=== PATIENT | male | born 1950 | race Caucasian/White ===

== ENCOUNTER 2019-12-21 16:20 | Emergency (ER) | payer MEDICARE, BC, SELFPAY ==
[2019-12-21] VITALS (8 sets, daily range): BP systolic 148–168; BP diastolic 91–111; PULSE 74–87; RESP 14–18; TEMP 36.6–36.7; O2SAT 96–100; BMI 37.6
--- NOTE | 2019-12-21 16:33 | XR_ITS ---
PROCEDURE: XR SHOULDER LT MIN 2V CLINICAL INDICATION: FALL COMPARISON: No exams were available for comparison FINDINGS: The humeral head projects over the inferior lip of the glenoid consistent with anterior shoulder dislocation. There is a small bone fragment adjacent to the greater tuberosity probably representing an avulsion chip fracture. Clavicle is intact. There is a slightly lateral downsloping acromion process of the scapula. The soft tissues are normal. IMPRESSION: Anterior shoulder dislocation with possible small avulsion chip fracture involving the greater tuberosity. Dictated by: Dr. Karel Greer MD 12/22/2019 10:54 Dr. aKrel Greer MD in [facility] 12/22/2019 10:54
--- NOTE | 2019-12-21 16:34 | XR_ITS ---
PROCEDURE: XR ELBOW LT MIN 3V CLINICAL INDICATION: FALL COMPARISON: No exams were available for comparison FINDINGS: No fracture or dislocation. No lytic or blastic change. There is normal mineralization. The joint spaces are well-preserved. No significant degenerative/arthritic changes. No erosive changes evident. Other findings:None. IMPRESSION: No acute findings. Dictated by: Dr. Karel Greer MD 12/22/2019 10:56 Dr. Karel Greer MD in [facility] 12/22/2019 10:56
--- NOTE | 2019-12-21 16:34 | XR_ITS ---
PROCEDURE: XR HUMERUS LT CLINICAL INDICATION: FALL COMPARISON: No exams were available for comparison FINDINGS: The humeral head and humeral shaft and supracondylar humerus appear grossly intact other than possible small avulsion chip fracture of the greater tuberosity. The humeral head remains dislocated projecting over the inferior lip of the glenoid. IMPRESSION: Anterior dislocation left shoulder with probable chip fracture greater tuberosity otherwise humeral shaft intact Dictated by: Dr. Karel Greer MD 12/22/2019 10:55 Dr. Karel Greer MD in [facility] 12/22/2019 10:55
--- NOTE | 2019-12-21 16:35 | CT_ITS ---
PROCEDURE: CT HEAD/BRAIN WO CON Referring Doctor: Omar Cardoza Patient Age:68Y CLINICAL INDICATION: FALL head and neck pain. Head injury. Neck injury COMPARISON: CT CT CERVICAL SPINE WO CON from 12/21/2019 TECHNIQUE: No IV contrast utilized standard axial images were obtained. All CT scans at the facility use one or more dose reduction, viz: automated exposure control, ma/kV adjustment per patient size (including targeted exams where dose is matched to indication, i.e. head), or iterative reconstruction technique. FINDINGS: No acute intracranial findings. No intracranial hemorrhage. No hydrocephalus.The ventricles and basal cisterns appear clear and satisfactory. Minimal diffuse cerebral atrophy age-appropriate no mass or midline shift nor mass effect. No subdural or extra-axial fluid collection is evident. Benign calcifications the falx. Tortuous upper normal caliber basilar artery. Posterior fossa unremarkable. Skull intact- calvarium unremarkable appearance. Nomastoid effusions. Mastoid air cells are well developed and clear. Middle ear clear. IAC's symmetric. Nosinus air-fluid level. Visualized portions of the paranasal sinuses unremarkable. Deviation nasal septum septal minimal spur to the left noted IMPRESSION: No acute intracranial findings Dictated by: Abner Grande MD 12/21/2019 17:41 Abner Grande MD in [facility] 12/21/2019 17:41
--- NOTE | 2019-12-21 16:36 | CT_ITS ---
PROCEDURE: CT CERVICAL SPINE WO CON CLINICAL INDICATION: FALL COMPARISON: No exams were available for comparison TECHNIQUE: Axial images obtained with sagittal and coronal reformats. All CT scans at the facility use one or more dose reduction, viz: automated exposure control, ma/kV adjustment per patient size (including targeted exams where dose is matched to indication, i.e. head), or iterative reconstruction technique. Axial spiral CT scanning performed of the cervical spine beginning at the base of the skull and continuing to the upper T-spine. 3-D multiplanar reconstruction with 3-D manipulation of volumetric data set in image rendering was completed by the radiologist and/or technologist with the supervision of the radiologist on independent workstation. FINDINGS: There is normal curvature and alignment. There is mild generalized osteopenia. C1 through C7 appear intact. There is mild anterior osteophytic spurring at the C3-4, C4-5 and C5-6 levels. There is moderate posterior osteophytic spurring at the C5-6 and C6-7 levels. These findings in addition to spurring of the uncinate joints results and moderate neural foraminal narrowing bilaterally at both of these levels. The prevertebral soft tissues are normal. There is mild arthritic change of the atlantoaxial joint. IMPRESSION: Multilevel degenerate changes as noted, no acute osseous pathology identified Dictated by: Dr. Karel Greer MD 12/22/2019 11:12 Dr. Karel Greer MD in [facility] 12/22/2019 11:12
--- NOTE | 2019-12-21 16:37 | CT_ITS ---
PROCEDURE: CT ANGIO CHEST CLINCIAL INDICATION: FALL COMPARISON: No exams were available for comparison TECHNIQUE: IV Contrast: 70ML OPTIRAY 350 Axial images obtained with sagittal and coronal reformats. All CT scans at the facility use one or more dose reduction, viz: automated exposure control, ma/kV adjustment per patient size (including targeted exams where dose is matched to indication, i.e. head), or iterative reconstruction technique. FINDINGS: HEART AND MEDIASTINAL STRUCTURES: There is borderline generalized cardiomegaly, there is no pericardial effusion. There is excellent vascular contrast. The pulmonary vascularity appears normal. LUNGS AND PLEURAL SPACES: The lung mcginnis are well-expanded. There is no pneumothorax and there is no pulmonary contusion. There is minimal atelectasis at both lung bases. There is an azygos lobe seen a normal variation. BONY STRUCTURES: There is prominent multilevel degenerate changes of the thoracic spine with prominent bridging osteophytes at multiple levels. There is no definite acute compression fracture seen. There is an anterior dislocation left humeral head. UPPER ABDOMEN: There are multiple surgical clips along the greater curvature of the upper stomach and there is a small to moderate-sized hiatal hernia. The visualized portions of the liver and spleen appear grossly normal. ADDITIONAL FINDINGS: There is a partially calcified thyroid nodule left lobe.. IMPRESSION: Anterior dislocation left shoulder not completely visualized on these images. Otherwise no acute chest pathology identified Dictated by: Dr. Karel Greer MD 12/22/2019 15:28 Dr. Karel Greer MD in [facility] 12/22/2019 15:28
--- NOTE | 2019-12-21 16:38 | CT_ITS ---
PROCEDURE: CT ABDOMEN PELVIS W CON CLINICAL INDICATION: FALL COMPARISON: No exams were available for comparison TECHNIQUE: IV Contrast: 75ML OPTIRAY 350 Oral Contrast none given Axial images obtained with sagittal and coronal reformats. All CT scans at the facility use one or more dose reduction, viz: automated exposure control, ma/kV adjustment per patient size (including targeted exams where dose is matched to indication, i.e. head), or iterative reconstruction technique. FINDINGS: Lower thorax: The lower lung mcginnis are clear and there is no pleural fluid. ABDOMEN: Liver: No masses or biliary dilatation. Gallbladder: Post cholecystectomy Pancreas: Mild diffuse fatty infiltration noted Spleen: unremarkable Adrenals: There is a nodular slightly hypodense lesion involving the right adrenal gland likely an adenoma in view of the CT number. The left adrenal is normal. Kidneys/ureters: The kidneys are normal in size and show symmetrical function. There are small benign-appearing cortical cysts in each kidney. ABDOMEN & PELVIS: Stomach bowel: There is a small to moderate size sliding hiatal hernia. The stomach appears grossly normal though there are multiple surgical clips along the upper greater curvature. The small bowel appears normal. There is moderate scattered stool and gas seen throughout the colon. There are mild diverticular changes of the sigmoid colon. There is a slightly enhancing small moderate-sized diverticulum of the upper sigmoid colon, doubt acute diverticulitis. Peritoneum: There is a small umbilical hernia containing fat only. There is a well-defined hypodense lesion within the muscular and fascial planes of the right upper lateral abdomen measuring 3.5 cm in length and likely a small lipoma. Lymph nodes: No enlarged lymph nodes apparent. Vasculature: No evidence of abdominal aortic aneurysm. No retroperitoneal hemorrhage evident. Bones: There prominent multilevel degenerate changes of the lower thoracic and lumbar spine with mild levo scoliotic curvature of the lower thoracic and lumbar spine. There prominent hypertrophic facet changes at levels L4-5 and L5-S1. PELVIS: Reproductive: unremarkable Bladder: The urinary bladder is moderately distended with urine and appears normal. The prostate is slightly enlarged. There is minimal calcification of the seminal vesicles. Appendix: The appendix is not definitely visualized but there are no findings to suggest acute appendicitis. IMPRESSION: No acute abdominal or pelvic pathology identified, mild diverticulosis sigmoid colon without definite diverticulitis, somewhat prominent solitary diverticulum of the upper sigmoid colon as noted Dictated by: Dr. Karel Greer MD 12/22/2019 17:19 Dr. Karel Greer MD in [facility] 12/22/2019 17:19
--- NOTE | 2019-12-21 16:39 | XR_ITS ---
PROCEDURE: XR HIP RT 2-3V W/PELVIS CLINICAL INDICATION: FALL COMPARISON: No exams were available for comparison FINDINGS: No fracture or dislocation is evident. Overall bony detail somewhat degraded due to the portable technique and the patient's obesity. There minor degenerate changes of both hips and there is minor sclerosis of both SI joints. There are surgical clips mid lower pelvis probably due to previous ventral hernia or possibly inguinal hernia repairs. The iliac bones and pubic bones appear intact.. IMPRESSION: No acute findings. Dictated by: Dr. Karel Greer MD 12/22/2019 11:01 Dr. Karel Greer MD in [facility] 12/22/2019 11:01
--- NOTE | 2019-12-21 16:40 | [facility].EDFALL ---
ED Disposition Clinical Impression: Dislocation of shoulder region, Fall, Right hip pain Disposition: Home, Self-Care Condition on Discharge: Fair Instructions: DI for Moderate Sedation Additional Instructions: Return with any new or worsening symptoms. Follow-up with an orthopedist and your primary care physician regarding CT scan findings. Referrals: PCP,No [Primary Care Provider] - - Critical Care Critical Care Time: Yes Attestation: On , the high probability of a clinically significant, sudden or life threatening deterioration of the following system(s) required my full and direct attention, intervention and personal management. The time I documented below is in addition to time spent performing reported procedures but includes the following listed in this critical care notation. Total Critical Care Time: 30 Vital system(s) involved:: Circulatory Failure, Respiratory Failure, Shock (Hemorrhage) My critical care processes included: Assessment & monitoring of V/S, Initial and Re-exams, Data Review/Interpretation, Coordinating Care, Medication Orders and management, Documentation Medical Decision Making - Howie Inquiry Pt receiving controlled substance: No Vital Signs: 12/21/19 16:27 12/21/19 17:54 12/21/19 17:58 Temperature 98.1 F Temperature Source Oral Pulse Rate [Radial] 77 81 79 Respiratory Rate 18 18 14 Blood Pressure [Right Arm] 155/111 H 165/106 H 168/104 H Blood Pressure Mean [Right Arm] 125 125 125 Blood Pressure Position [Right Arm] Sitting Sitting Sitting 02 Sat by Pulse Oximetry 98 96 100 Oxygen Delivery Method Room Air Nasal Cannula Nasal Cannula Oxygen Flow Rate (LPM) 3 3 12/21/19 18:05 12/21/19 18:08 12/21/19 18:13 Temperature Temperature Source Pulse Rate [Radial] 82 87 77 Respiratory Rate 14 14 16 Blood Pressure [Right Arm] 165/91 H 148/94 H 155/93 H Blood Pressure Mean [Right Arm] 115 112 113 Blood Pressure Position [Right Arm] Sitting Sitting 02 Sat by Pulse Oximetry 97 97 98 Oxygen Delivery Method Nasal Cannula Nasal Cannula Oxygen Flow Rate (LPM) 3 3 12/21/19 18:30 Temperature Temperature Source Pulse Rate [Radial] 82 Respiratory Rate 16 Blood Pressure [Right Arm] 161/99 H Blood Pressure Mean [Right Arm] 119 Blood Pressure Position [Right Arm] Sitting 02 Sat by Pulse Oximetry 96 Oxygen Delivery Method Nasal Cannula Oxygen Flow Rate (LPM) 3 - Lab Data Lab Results 12/21/19 16:40: WBC 6.9, RBC 4.43 L, Hgb 15.1, Hct 42.0, MCV 94.8 H, MCH 34.0 H, MCHC 35.9 H, RDW 13.2, Plt Count 213, MPV 8.8, Neut % (Auto) 72.4, Lymph % (Auto) 18.9, Callaway % (Auto) 4.3, Eos % (Auto) 3.7, Baso % (Auto) 0.7, Neut # (Auto) 5.0, Lymph # (Auto) 1.3, Call[place] # (Auto) 0.3, Eos # (Auto) 0.3, Baso # (Auto) 0.1 12/21/19 16:40: Sodium 140, Potassium 3.3 L, Chloride 105, Carbon Dioxide 27, Anion Gap 11.3, BUN 17, Creatinine 0.70, Estimated Creat Clear 122, Estimated GFR 112, Est GFR ( Amer) 136, Glucose 119 H, Calcium 8.9, Total Bilirubin 0.7, AST 36, ALT 17, Alkaline Phosphatase 56, Total Protein 6.8, Albumin 4.1, Globulin 2.7, Albumin/Globulin Ratio 1.5 Result diagrams: 12/21/19 16:40 12/21/19 16:40 Orders (Tests/Meds): ED MEDICATIONS Discontinued Medications Generic Name Dose Route Start Last Admin Trade Name Freq PRN Reason Stop Dose Admin Ioversol 100 ml 12/21/19 17:40 12/21/19 17:40 Ioversol-350 (74%) 100ml Vial IV 12/21/19 17:41 100 ml ONCE ONE Administration Protocol Morphine Sulfate 4 mg 12/21/19 16:40 12/21/19 16:41 Morphine 4mg/Ml Syringe IV 12/21/19 16:41 4 mg ONCE ONE Administration Morphine Sulfate 4 mg 12/21/19 16:54 12/21/19 16:54 Morphine 4mg/Ml Syringe IV 12/21/19 16:55 4 mg ONCE ONE Administration Ondansetron HCl 4 mg 12/21/19 16:40 12/21/19 16:41 Ondansetron 4mg/2ml Vial IV 12/21/19 16:41 4 mg ONCE ONE Administration Propofol 40 mg 12/21/19 17:56 12/21/19 17:56 Propofol 10mg/Ml 20ml Vial
[2019-12-21 16:49] LABS: Basophils # 0.1 K/mm3 (0-0.2); Basophils % 0.7 % (0.1-2.0); Eosinophils # 0.3 K/mm3 (0.0-0.4); Eosinophils % 3.7 % (0.1-12.0); Hemoglobin 15.1 g/dL (14.1-18.0); Lymphocytes # 1.3 K/mm3 (0.7-4.5); Lymphocytes % 18.9 % (10-50); Mean Corpuscular HGB Conc 35.9 g/dL (31.8-35.4); Mean Corpuscular Volume 94.8 fl (80-94); Mean Platelet Volume 8.8 fl (7.4-10.4); Monocytes # 0.3 K/mm3 (0.1-1.0); Monocytes % 4.3 % (1.7-9.3); Neutrophils % 72.4 % (37.0-80.0); Platelet Count 213 K/mm3 (142-424); Red Blood Count 4.43 M/mm3 (4.60-6.20); Red Cell Distribution Width 13.2 % (11.5-17.5); White Blood Count 6.9 K/mm3 (4.8-10.8)
--- NOTE | 2019-12-21 16:59 | PC.NURSE ---
Radiology at bedside
[2019-12-21 17:04] LABS: Chloride 105 mmol/L (98-107)
[2019-12-21 17:05] LABS: Potassium 3.3 mmoL/L (3.5-5.1); Sodium 140 mmol/L (136-145)
[2019-12-21 17:07] LABS: Alanine Aminotransferase 17 U/L (12-78); Aspartate Amino Transferase 36 U/L (17-59); Blood Urea Nitrogen 17 mg/dl (9-20); Creatinine Clearance Estimated 122 mL/min (50-200); Estimated Glomerular Filt Rate 112 ml/min (>60); GFR (African American) 136 ML/MIN (>60)
[2019-12-21 17:08] LABS: Albumin Level 4.1 g/dl (3.5-5.0); Albumin/Globulin Ratio 1.5 (1.1-1.8); Alkaline Phosphatase 56 U/L (38-126); Anion Gap 11.3 mEq/L (5-15); Bilirubin,Total 0.7 mg/dl (0.2-1.3); Calcium 8.9 mg/dl (8.4-10.2); Carbon Dioxide 27 mmol/L (22.0-30.0); Globulin 2.7 g/dL (1.3-3.2); Glucose 119 mg/dl (74-100); Total Protein,Serum 6.8 g/dl (6.3-8.2)
--- NOTE | 2019-12-21 17:23 | PC.NURSE ---
Pt is with Rad in CT. v/s delayed.
--- NOTE | 2019-12-21 18:06 | XR_ITS ---
PROCEDURE: XR SHOULDER LT 1V CLINICAL INDICATION: Post reduction COMPARISON: CR XR HUMERUS LT from 12/21/2019 FINDINGS: The anterior shoulder dislocation has been reduced. The humeral head and proximal humeral shaft appear intact. The clavicle is intact, there is minor degenerate change of the AC joint. There is a lateral downsloping acromion process which could predispose to some degree of impingement syndrome. IMPRESSION: Satisfactory reduction anterior shoulder dislocation Dictated by: Dr. Karel Greer MD 12/22/2019 10:52 Dr. Karel Greer MD in [facility] 12/22/2019 10:52
--- NOTE | 2019-12-21 18:20 | PC.NURSE ---
pt awake alert oriented x 4 taking sips of sprite
--- NOTE | 2019-12-21 18:59 | PC.NURSE ---
pt up ambulatory to bathroom with assist of one. pt jaylin well
== END 2019-12-21 20:06 | disposition home or self-care (01) ==
PROVIDERS: Emergency Provider Emergency Medicine
DX: S42.255A Nondisplaced fracture of greater tuberosity of left humerus, initial encounter for closed fracture (principal); S43.002A Unspecified subluxation of left shoulder joint, initial encounter; W11.XXXA Fall on and from ladder, initial encounter; Y92.019 Unspecified place in single-family (private) house as the place of occurrence of the external cause
CPT/HCPCS: 23665; 70450; 71275; 72125; 73020; 73030; 73060; 73080; 73502; 74177; 80053; 85025; 96365; 96374; 96375; 96376; 99285; J2405; Q9967

== ENCOUNTER 2024-12-19 18:59 | Emergency (ER) | payer MEDICARE, BC, SELFPAY ==
--- OUTSIDE RECORDS SUMMARY | 2022-07-21 10:44 | XMS_ITS | Encounter Summary ---
[facility] [address] [place] [address] Care Team Providers Care Swimming Pool Installer And Servicer Name Role Phone Nick Siddiqui MD Primary Care Provider [phone] Reason for Referral * Cardiac (Routine) - Closed Specialty Diagnoses / Procedures Referred By Stefan t Referred To Contact Cardiology Diagnoses Persistent atrial fibrillation Procedures Holter Monitor - 24 [place] [address] [place] [address] Phone: tel: fax: [facility] [address] [place] [phone] Phone: tel: fax: Referral ID Status Reason Start Date Expiration Date Visits Re quested Visits Authorized [id number] Closed 07/03/2022 07/03/2023 1 1 Reason for Visit * Cardiac (Routine) - Closed Specialty Diagnoses / Procedures Referred By Contnatalee t Referred To Contact Cardiology Diagnoses Persistent atrial fibrillation Procedures Holter Monitor - 24 Hour Neeraj Alvarenga III, MD [address] [place] [address] Phone: tel: fax: [facility] [address] [place] [phone] Phone: tel: fax: Referral ID Status Reason Start Date Expiration Date Visits Re quested Visits Authorized [id number] Closed 07/03/2022 07/03/2023 1 1 Encounter Details Date Type Department Care Team (Latest Contact Info) Description 07/21/2022 10:44 AM EDT Hospital Encounter [facility] [address] [place] [address] Persistent atrial fibrillation Social History Tobacco Use Types Packs/Day Years Used Date Smoking Tobacco: Never Passive Smoke Exposure: Never Smokeless Tobacco: Never Alcohol Use Standard Drinks/Week Comments Yes 5 (1 standard drink = 0.6 oz pur e alcohol) [facility] Utilities Answer Date Recorded In the past 12 months has th e electric, gas, oil, or water company threatened to shut off services in your home? No 01/12/2023 Social Connection and Isolat ion Panel [NHANES] Answer Date Recorded In a typical week, how many times do you talk on the phone with family, friends, or neighbors? More than three times a week 01/12/2023 How often do you get togethe r with friends or relatives? Once a week 01/12/2023 How often do you attend chur ch or jain services? Never 01/12/2023 Do you belong to any clubs o r organizations such as quaker groups, unions, fraternal or athletic groups, or school groups? No 01/12/2023 How often do you attend meet ings of the clubs or organizations you belong to? Never 01/12/2023 Are you , , di vorced, , never , or living with a partner? 01/12/2023 Overall Financial Resource Strain (CARDIA) Answe r Date Recorded How hard is it for you to pa y for the very basics like food, housing, medical care, and heating? Somewhat hard 01/12/2023 PHQ-2 Answer Date Recorded Retired PHQ-9: Brief Depression Severity Measure Score 0 07/30/2022 [facility] Occup[facility] - Occupational Stress Questionnaire Answer Date Recorded Do you feel stress - tense, restless, nervous, or anxious, or unable to sleep at night because your mind is troubled all the time - these days? Not at all 01/12/2023 Exercise Vital Sign Answer Date Recorde d On average, how many days pe r week do you engage in moderate to strenuous exercise (like a brisk walk)? 0 days 01/12/2023 On average, how many minutes do you engage in exercise at this level? 0 min 01/12/2023 Hunger Vital Sign Answer Date Recorded Within the past 12 months, y ou worried that your food would run out before you got the money to buy more. Never true 01/13/20 23 Within the past 12 months, t he food you bought just didn't last and you didn't have money to get more. Never true 01/12/2023 PRAPARE - Transportation Answer Date Re corded In the past 12 months, has l ack of transportation kept you from medical appointments or from getting medications? No 12/21 In the past 12 months, has l ack of transportation kept you from meetings, work, or from getting things needed for daily living? No 01/12/2023 Housing Stability Vital Sign Answer Dylon e Recorded In the last 12 months, was t here a time when you were not able to pay the mortgage or rent on time? No 01/12/2023 In the last 12 months, how many places have you lived? 2 01/12/2023 In the last 12 months, was t here a time when you did not have a steady place to sleep or slept in a senior care (including now)? No 01/12/2023 Abuse Screen Answer Date Recorded Feels Unsafe at Home or Work/School no 07/01/2022 Feels Threatened by Someone no 06/20 Does Anyone Try to Keep You From Having Contact with Others or Doing Things Outside Your Home? no 07/01/2022 Physical Signs of Abuse Present no 07/01/2022 PHQ-2 Answer Date Recorded Patient Health Questionnaire-2 Score 0 09/13/2024 Comments Unknown Sex and Gender Information Value Date Recorded Sex Assigned at Not recorded on cert ificate 09/11/2024 11:33 AM EDT Legal Sex Male 3:14 PM EDT Gender Identity Male 06/28/2022 3:05 PM EDT Sexual Orientation Straight 06/28/2022 3: 05 PM EDT documented as of this encounter Functional Status documented as of this encounter Progress Notes * Kendra Moncada APRN - 07/21/2022 11:[address] Alvarenga is out of the office today. Holter monitor shows atrial fibrillation, average heart rate of 82 which is good. He has premature ventricular contractions 1.8% of the time. I would recommend continuing with apixaban and metoprolol. Please call patient and let him know. documented in this encounter Plan of Treatment Upcoming Encounters Date Type Department Care Team (Late st Contact Info) Description 04/04/2025 1:00 PM EST Office Visit [facility] [address] [facility] [address] [place] [address] [place] [address] [facility] [address] [place] [address] 05/11/2025 10:30 AM EST Office Visit [facility] [address] [facility] [address] [place] [address] Neeraj Alvarenga III, MD [address] [facility] [address] [place], [place] [id number] documented as of this encounter Goals Goal Patient Goal Type Associated Problems Recent Progress Patient-Stated? Author Track and Manage Heart Rate and Rhythm Patient Goals On track( 024 2:30 PM EST) No Rachel Rapp, RN Note: - check pulse (heart) rate before taking medicine - check pulse (heart) rate once a day - take medicine as prescribed Why is this important? Atrial fibrillation may have no symptoms. Sometimes the symptoms get worse or happen more often. It is important to keep track of what your symptoms are and when they happen. A change in symptoms is important to discuss with your doctor or nurse. Being active and healthy eating will also help you manage your heart condition. Notes: Develop a Weight Loss Readiness Plan Patient Goals On track( 024 2:30 PM EST) Rachel Miller RN Note: - not discussed during this outreach Why is this important? Losing weight requires time to prepare your mind and your home. Identify your eating habits and the emotions attached to eating. Think about ways to be successful. When you are not ready, you could lose motivation and give up on your plan. Notes: Manage Pain Patient Goals On track( 024 2:30 PM EST) Rachel Miller, RN Note: - not discussed during this outreach Why is this important? Day-to-day life can be hard when you have joint pain. Pain medicine is just one piece of the treatment puzzle. There are many things you can do to manage pain and stay strong. Lifestyle changes like stopping smoking and eating foods with Vitamin D and calcium keeps your bones and muscles healthy. Your joints are better when supported by strong muscles. You can try these action steps to help you manage your pain. Notes: documented as of this encounter Procedures Procedure Name Priority Date/Time Associated Diagnosis Comments HOLTER MONITOR - CONNECT/RECORD/DIS CONNECT WITH INTERP Routine 07/21/2022 11:30 AM EDT Persistent atrial fibrillation documented in this encounter Results * HOLTER MONITOR - CONNECT/RECORD/DISCONNECT WITH INTERP (07/21/2022 11:30 AM EDT) Target HR (85%) 127 bpm Max. Pred. HR (100%) 149 bpm Anatomical Region Laterality Modality Other Narrative 07/27/2022 9:19 AM EDT An abnormal monitor study. The predominant rhythm noted during the testing period was atrial fibrillation. Average HR: 82. Min HR: 53. Max HR: 153. 1.8% of all beats are PVCs. There were no significant pauses. Study Description Monitor placed on patient by TF on 07/21/2022 at 10:36 EDT. Instructions were provided to patient on use of holter monitor and duration of monitoring. The patient was monitored for 1 days. Indications for this exam include Other Persistent Atrial Fibrillation. Average HR: 82. Min HR: 53. Max HR: 153. Study Findings Patient diary submitted. No symptoms reported during the monitoring period. The predominant rhythm noted during the testing period was atrial fibrillation. Premature ventricular contractions occured occasionally. 1.8% of all beats are PVCs. There were no significant pauses. Study Impressions An abnormal monitor study. us Neeraj Alvarenga III, MD [facility] Final Result documented in this encounter Visit Diagnoses Diagnosis Persistent atrial fibrillation Atrial fibrillation documented in this encounter Care Teams Swimming Pool Installer And Servicer Relationship Specialty [place] [id number] [address] PCP - General Family Medicine 12/20/18 documented as of this encounter
--- OUTSIDE RECORDS SUMMARY | 2024-11-22 13:30 | XMS_ITS | Encounter Summary ---
[facility] Address [address] [place] [address] Care Team Providers Care Sales Data Analyst Name Role Phone Nick Siddiqui MD Primary Care Provider Reason for Visit * Reason Comments Hypertension C/o high readings Encounter Details Date Type Department Care Team (Late st Contact Info) Description 11/22/2024 1:30 PM EDT Office Visit [facility] [address] [facility] [address] [place] [address] [place] [id number] [facility] [address] [place] [address] Primary hypertension (Primary Dx); Impaired fasting glucose Social History Tobacco Use Types Packs/Day Years Used Date Smoking Tobacco: Never Passive Smoke Exposure: Never Smokeless Tobacco: Never Alcohol Use Standard Drinks/Week Comments Yes 5 (1 standard drink = 0.6 oz pur e alcohol) OCCASIONAL C Utilities Answer Date Recorded In the past 12 months has [employer] electric, gas, oil, or water company threatened [...] week 01/12/2023 How often do you attend [facility] or confucianist services? Never 01/12/2023 Do you belong to any clubs o r organizations such as worship groups, unions, fraternal or athletic groups, or [...] Brief Depression Severity Measure Score 0 07/30/2022 [facility] - Occupational Stress [...] place to sleep or slept in a residential (including now)? No 01/12/2023 Abuse Screen Answer [...] PM EDT documented as of this encounter Last Filed Vital Signs Vital Sign Reading Time Taken Comments Blood Pressure 152/90 11/22/2024 1:17 PM EDT Pulse 60 11/22/2024 1:17 PM EDT Temperature 36.7 C (98 F) 11/22/2024 1:17 PM EDT Respiratory Rate - - Oxygen Saturation 98% 11/22/2024 1:17 PM EDT Inhaled Oxygen Concentration - - Weight 144 kg (317 lb 12.8 oz) 11/22/2024 1:17 P M EDT Height 177.8 cm (5' 10 ) 11/22/2024 1:17 PM EDT Body Mass Index 45.6 11/22/2024 1:17 PM EDT documented in this encounter Progress Notes * Nick Siddiqui MD - 11/22/2024 1:30 PM EDT Chief Complaint Patient presents with Hypertension C/o high readings Subjective Chet Smith is a 73 y.o. adult. Hypertension Associated symptoms: no blurred vision, no chest pain, no palpitations and no shortness of breath F/U HTN. BP running 150/90-100. Not on amlodipine 5 mg a day. On other meds. The following portions of the patient's history were reviewed and updated as appropriate: allergies, current medications, past family history, past medical history, past social history, past surgicalhistory and problem list. Review of Systems Constitutional: Negative for appetite change and fatigue. HENT: Negative for nosebleeds and sore throat. Eyes: Negative for blurred vision and visual disturbance. Respiratory: Negative for shortness of breath and wheezing. Cardiovascular: Negative for chest pain, palpitations and leg swelling. Gastrointestinal: Negative for abdominal distention and abdominal pain. Endocrine: Negative for cold intolerance and polyuria. Genitourinary: Negative for dysuria and hematuria. Musculoskeletal: Negative for arthralgias and myalgias. Skin: Negative for color change and rash. Neurological: Negative for weakness and confusion. Psychiatric/Behavioral: Negative for agitation and depressed mood. Patient Active Problem List Diagnosis CHARITO (obstructive sleep apnea) Medicare annual wellness visit, subsequent Malabsorption Impaired fasting glucose Hypertension GERD without esophagitis Depression Benign paroxysmal positional vertigo Allergic rhinitis Benign enlargement of prostate Arthritis of both knees H/O bariatric surgery Morbid obesity Nephrolithiasis Cough Anterior dislocation of left shoulder Chronic left shoulder pain Paronychia of left thumb Bilateral carpal tunnel syndrome Encounter for hepatitis C screening test for low risk patient Immunization deficiency Permanent atrial fibrillation PVCs (premature ventricular contractions) Ascending aorta dilation Aortic root dilation Nonrheumatic mitral valve regurgitation Left ventricular dysfunction Arthritis of left knee No Known Allergies Current Outpatient Medications: acetaminophen (Tylenol) 325 MG tablet, Take 500 mg by mouth Daily., Disp: , Rfl: amLODIPine (NORVASC) 5 MG tablet, Take 1 tablet by mouth Daily., Disp: 90 tablet, Rfl: 3 apixaban (Eliquis) 5 MG tablet tablet, Take 1 tablet by mouth Every 12 (Twelve) Hours., Disp: 28 tablet, Rfl: 0 Ascorbic Acid (VITAMIN C PO), Take 1 tablet by mouth Daily., Disp: , Rfl: Calcium Carbonate-Vit D-Min (CALTRATE 600+D PLUS MINERALS) 600-800 MG-UNIT chewable tablet, 1 bid (Patient taking differently: Chew 2 tablets. 1 bid), Disp: 60 tablet, Rfl: cetirizine (zyrTEC) 10 MG tablet, Take 1 tablet by mouth Daily., Disp: , Rfl: cyanocobalamin ([employer] Vitamin B-12) 1000 MCG tablet, Take 1 tablet by mouth Daily., Disp: , Rfl: diphenhydrAMINE (BENADRYL) 25 mg capsule, Take 2 capsules by mouth 2 (two) times a day., Disp: , Rfl: docusate sodium 100 MG capsule, Take 1 capsule by mouth 2 (Two) Times a Day., Disp: 60 capsule, Rfl: 1 hydroCHLOROthiazide 25 MG tablet, Take 1 tablet by mouth Daily., Disp: 90 tablet, Rfl: 3 metoprolol succinate XL (TOPROL-XL) 50 MG 24 hr tablet, Take 4 tablets by mouth Daily. Per Dr. Parnell 10/02/2022, Disp: 360 tablet, Rfl: 3 Multiple Vitamin (MULTI-VITAMIN PO), Take 1 tablet by mouth Daily. HELD FOR OR, Disp: , Rfl: Multiple Vitamins-Minerals (PRESERVISION AREDS 2 PO), Take by mouth. HOLD PRIOOR TO OR, Disp: , Rfl: oxybutynin (DITROPAN) 5 MG tablet, Take 1 tablet by mouth 2 (Two) Times a Day., Disp: , Rfl: potassium citrate (UROCIT-K) 10 MEQ (1080 MG) CR tablet, Take 1 tablet by mouth 2 (Two) Times a Day., Disp: 180 tablet, Rfl: 3 valsartan (Diovan) 160 MG tablet, Take 1 tablet by mouth Daily., Disp: 90 tablet, Rfl: 3 Past Medical History: Diagnosis Date Allergic rhinitis Arthritis Atrial fibrillation 2021 Benign enlargement of prostate Benign paroxysmal positional vertigo Cholelithiasis Closed fracture of greater tuberosity of left humerus 12/27/2019 Eczema Fracture, finger 6 mouths History of 2019 novel coronavirus disease (COVID-19) 07/2019 FEVER AND COUGH History of cellulitis History of shingles 2019 Hypertension Impaired fasting glucose Kidney stone Knee swelling Year a go Low back strain Nephrolithiasis Obesity CHARITO (obstructive sleep apnea) WEARS CPAP Psoriasis PVCs (premature ventricular contractions) 04/29/2023 1.8% PVC burden on Holter 2022 Rotator cuff tear, left Past Surgical History: Procedure Laterality Date BACK SURGERY About 25 year BARIATRIC SURGERY CATARACT EXTRACTION, BILATERAL 02/2020 CHOLECYSTECTOMY COLONOSCOPY 2010 DIVERTICULOSIS COLONOSCOPY N/A 10/09/2020 Procedure: COLONOSCOPY INTO CECUM/ TERMINAL ILEUM; Surgeon: Davi Beckford MD; Location: [facility]; Service: Gastroenterology; Laterality: N/A; pre: screening post: normal TI, hemorrhoids, diverticulosis EYE SURGERY GASTRIC SLEEVE LAPAROSCOPIC 2016 JOINT REPLACEMENT 2019 KIDNEY STONE SURGERY LUMBAR LAMINECTOMY lumbar discetomy L4-L5 PROSTATE SURGERY SHOULDER SURGERY 2020 TONSILLECTOMY TOTAL SHOULDER ARTHROPLASTY W/ DISTAL CLAVICLE EXCISION Left 05/16/2020 Procedure: Reverse Total Shoulder Arthroplasty; Surgeon: Jacobo Roca MD; Location: [facility]; Service: Orthopedics; Laterality: Left; Family History Problem Relation Age of Onset Hypertension Mother Cancer Father Diabetes Brother Cancer Brother Diabetes Brother Cancer Sister Cancer Sister Cancer Brother Diabetes Brother Diabetes Brother Malig Hyperthermia Neg Hx Social History Tobacco Use Smoking status: Never Passive exposure: Never Smokeless tobacco: Never Substance Use Topics Alcohol use: Yes Alcohol/week: 5.0 standard drinks of alcohol Types: 2 Cans of beer, 3 Drinks containing 0.5 oz of alcohol per week Comment: OCCASIONAL Objective Vitals: 11/22/24 1317 BP: 152/90 Pulse: 60 Temp: 98 ??F (36.7 ??C) SpO2: 98% Body mass index is 45.6 kg/m??. Physical Exam Vitals reviewed. Constitutional: Appearance: He is well-developed. He is not diaphoretic. HENT: Head: Normocephalic and atraumatic. Eyes: General: No scleral icterus. Pupils: Pupils are equal, round, and reactive to light. Neck: Thyroid: No thyromegaly. Cardiovascular: Rate and Rhythm: Normal rate and regular rhythm. Heart sounds: No murmur heard. No friction rub. No gallop. Pulmonary: Effort: Pulmonary effort is normal. No respiratory distress. Breath sounds: No wheezing or rales. Chest: Chest wall: No tenderness. Abdominal: General: Bowel sounds are normal. There is no distension. Palpations: Abdomen is soft. Tenderness: There is no abdominal tenderness. Musculoskeletal: General: No deformity. Normal range of motion. Lymphadenopathy: Cervical: No cervical adenopathy. Skin: General: Skin is warm and dry. Findings: No rash. Neurological: Cranial Nerves: No cranial nerve deficit. Motor: No abnormal muscle tone. Lab Results Component Value Date GLUCOSE 112 (H) 02/24/2024 BUN 16 02/24/2024 CREATININE 0.88 02/24/2024 EGFRIFNONA 93 01/22/2021 EGFRIFAFRI 107 01/22/2021 BCR 18 02/24/2024 K 3.8 02/24/2024 CO2 29 02/24/2024 CALCIUM 9.6 02/24/2024 ALBUMIN 4.2 02/24/2024 LABIL2 1.7 07/04/2018 AST 12 02/24/2024 ALT 11 02/24/2024 WBC Date Value Ref Range Status 05/19/2023 5.06 3.40 - 10.80 10*3/mm3 Final RBC Date Value Ref Range Status 05/19/2023 4.61 4.14 - 5.80 10*6/mm3 Final Hemoglobin Date Value Ref Range Status 05/19/2023 15.0 13.0 - 17.7 g/dL Final 07/01/2022 15.2 13.0 - 17.7 g/dL Final Hematocrit Date Value Ref Range Status 05/19/2023 44.0 37.5 - 51.0 % Final 07/01/2022 43.6 37.5 - 51.0 % Final MCV Date Value Ref Range Status 05/19/2023 95.4 79.0 - 97.0 fL Final 07/01/2022 95.2 79.0 - 97.0 fL Final MCH Date Value Ref Range Status 05/19/2023 32.5 26.6 - 33.0 pg Final 07/01/2022 33.2 (H) 26.6 - 33.0 pg Final MCHC Date Value Ref Range Status 05/19/2023 34.1 31.5 - 35.7 g/dL Final 07/01/2022 34.9 31.5 - 35.7 g/dL Final RDW Date Value Ref Range Status 05/19/2023 12.4 12.3 - 15.4 % Final 07/01/2022 12.2 (L) 12.3 - 15.4 % Final RDW-SD Date Value Ref Range Status 07/01/2022 42.5 37.0 - 54.0 fl Final MPV Date Value Ref Range Status 07/01/2022 10.6 6.0 - 12.0 fL Final Platelets Date Value Ref Range Status 05/19/2023 192 140 - 450 10*3/mm3 Final 07/01/2022 180 140 - 450 10*3/mm3 Final Neutrophil Rel % Date Value Ref Range Status 05/19/2023 59.6 42.7 - 76.0 % Final Neutrophil % Date Value Ref Range Status 07/01/2022 65.1 42.7 - 76.0 % Final Lymphocyte Rel % Date Value Ref Range Status 05/19/2023 27.9 19.6 - 45.3 % Final Lymphocyte % Date Value Ref Range Status 07/01/2022 21.6 19.6 - 45.3 % Final Monocyte Rel % Date Value Ref Range Status 05/19/2023 9.1 5.0 - 12.0 % Final Monocyte % Date Value Ref Range Status 07/01/2022 10.6 5.0 - 12.0 % Final Eosinophil Rel % Date Value Ref Range Status 05/19/2023 2.4 0.3 - 6.2 % Final Eosinophil % Date Value Ref Range Status 07/01/2022 1.7 0.3 - 6.2 % Final Basophil Rel % Date Value Ref Range Status 05/19/2023 0.6 0.0 - 1.5 % Final Basophil % Date Value Ref Range Status 07/01/2022 0.6 0.0 - 1.5 % Final Immature Grans % Date Value Ref Range Status 07/01/2022 0.4 0.0 - 0.5 % Final Neutrophils Absolute Date Value Ref Range Status 05/19/2023 3.02 1.70 - 7.00 10*3/mm3 Final Neutrophils, Absolute Date Value Ref Range Status 07/01/2022 3.07 1.70 - 7.00 10*3/mm3 Final Lymphocytes Absolute Date Value Ref Range Status 05/19/2023 1.41 0.70 - 3.10 10*3/mm3 Final Lymphocytes, Absolute Date Value Ref Range Status 07/01/2022 1.02 0.70 - 3.10 10*3/mm3 Final Monocytes Absolute Date Value Ref Range Status 05/19/2023 0.46 0.10 - 0.90 10*3/mm3 Final Monocytes, Absolute Date Value Ref Range Status 07/01/2022 0.50 0.10 - 0.90 10*3/mm3 Final Eosinophils Absolute Date Value Ref Range Status 05/19/2023 0.12 0.00 - 0.40 10*3/mm3 Final Eosinophils, Absolute Date Value Ref Range Status 07/01/2022 0.08 0.00 - 0.40 10*3/mm3 Final Basophils Absolute Date Value Ref Range Status 05/19/2023 0.03 0.00 - 0.20 10*3/mm3 Final Basophils, Absolute Date Value Ref Range Status 07/01/2022 0.03 0.00 - 0.20 10*3/mm3 Final Immature Grans, Absolute Date Value Ref Range Status 07/01/2022 0.02 0.00 - 0.05 10*3/mm3 Final nRBC Date Value Ref Range Status 05/19/2023 0.0 0.0 - 0.2 /100 WBC Final 07/01/2022 0.0 0.0 - 0.2 /100 WBC Final Lab Results Component Value Date HGBA1C 6.1 (H) 02/24/2024 Lab Results Component Value Date PGYSQRNP38 >2000 (H) 05/19/2023 TSH Date Value Ref Range Status 07/01/2022 0.439 0.270 - 4.200 uIU/mL Final No results found for: CHOL Lab Results Component Value Date TRIG 161 (H) 05/19/2023 Lab Results Component Value Date HDL 40 05/19/2023 Lab Results Component Value Date LDL 77 05/19/2023 Lab Results Component Value Date VLDL 28 05/19/2023 Lab Results Component Value Date LDLHDL 1.7 06/17/2017 Procedures Assessment & Plan Problems Addressed this Visit Impaired fasting glucose Relevant Orders Hemoglobin A1c Hypertension - Primary Relevant Orders Comprehensive Metabolic Panel Diagnoses Codes Comments Primary hypertension - Primary ICD-10-CM: I10 ICD-9-CM: 401.9 Impaired fasting glucose ICD-10-CM: R73.01 ICD-9-CM: 790.21 HTN. Uncontrolled. Chronic. Restart amlo 5 a day. Continue metoprolol, hctz, valsartan. Check CMP. Hyperglycemia/IFG. Check A1c. Gets PSA through urology. Orders Placed This Encounter Procedures Comprehensive Metabolic Panel Release to patient: Routine Release [[id number]] Hemoglobin A1c Release to patient: Routine Release [[id number]] Current Outpatient Medications Medication Sig Dispense Refill acetaminophen (Tylenol) 325 MG tablet Take 500 mg by mouth Daily. amLODIPine (NORVASC) 5 MG tablet Take 1 tablet by mouth Daily. 90 tablet 3 apixaban (Eliquis) 5 MG tablet tablet Take 1 tablet by mouth Every 12 (Twelve) Hours. 28 tablet 0 Ascorbic Acid (VITAMIN C PO) Take 1 tablet by mouth Daily. Calcium Carbonate-Vit D-Min (CALTRATE 600+D PLUS MINERALS) 600-800 MG-UNIT chewable tablet 1 bid (Patient taking differently: Chew 2 tablets. 1 bid) 60 tablet cetirizine (zyrTEC) 10 MG tablet Take 1 tablet by mouth Daily. cyanocobalamin ([employer] Vitamin B-12) 1000 MCG tablet Take 1 tablet by mouth Daily. diphenhydrAMINE (BENADRYL) 25 mg capsule Take 2 capsules by mouth 2 (two) times a day. docusate sodium 100 MG capsule Take 1 capsule by mouth 2 (Two) Times a Day. 60 capsule 1 hydroCHLOROthiazide 25 MG tablet Take 1 tablet by mouth Daily. 90 tablet 3 metoprolol succinate XL (TOPROL-XL) 50 MG 24 hr tablet Take 4 tablets by mouth Daily. Per Dr. Parnell10/02/2022 360 tablet 3 Multiple Vitamin (MULTI-VITAMIN PO) Take 1 tablet by mouth Daily. HELD FOR OR Multiple Vitamins-Minerals (PRESERVISION AREDS 2 PO) Take by mouth. HOLD PRIOOR TO OR oxybutynin (DITROPAN) 5 MG tablet Take 1 tablet by mouth 2 (Two) Times a Day. potassium citrate (UROCIT-K) 10 MEQ (1080 MG) CR tablet Take 1 tablet by mouth 2 (Two) Times a Day.180 tablet 3 valsartan (Diovan) 160 MG tablet Take 1 tablet by mouth Daily. 90 tablet 3 No current facility-administered medications for this visit. Chet Smith had no medications administered during this visit. No follow-ups on file. There are no Patient Instructions on file for this visit. documented in this encounter Plan of Treatment Upcoming Encounters Date Type Department Care Team (Late st Contact Info) Description 04/04/2025 1:00 PM EST Office Visit [facility] [address] [facility] [address] [place] [address] [place] [id number] [facility] [address] [place] [address] 05/11/2025 10:30 AM EST Office Visit [facility] [address] [address] Neeraj Alvarenga III, MD [address] [address] documented as of this encounter Goals Goal Patient Goal Type Associated Problems Recent Progress Patient-Stated? Author Track and Manage Heart Rate and Rhythm Patient Goals On track( 2:30 PM EST) No Rachel Rapp, RN [...] Loss Readiness Plan Patient Goals On track( 2:30 PM EST) No Rachel Rapp, RN Note: - not discussed during this outreach Why is this important? Losing weight requires time to prepare your mind and your home. Identify your eating habits and the emotions attached to eating. Think about ways to be successful. When you are not ready, you could lose motivation and give up on your plan. Notes: Manage Pain Patient Goals On track( 2:30 PM EST) No Rachel Rapp, RN Note: - not discussed during this [...] Procedure Name Priority Date/Time Associated Diagnosis Comments HEMOGLOBIN A1C Routine 11/22/2024 1:56 PM EDT Impaired fasting glucose COMPREHENSIVE METABOLIC PANEL Routine 11/22/2024 1:56 PM EDT Primary hypertension documented in this encounter Results * (ABNORMAL) Hemoglobin A1c (11/22/2024 1:56 PM EDT) Hemoglobin A1C 5.8(H) 4.8 - 5.6 % [facility] Comment: Prediabetes: 5.7 - 6.4 Diabetes: >6.4 Glycemic control for adults with diabetes: <7.0 Blood 11/22/2024 1:56 PM EDT 11/22/2024 Narrative [facility] (AMBULATORY) - 11/23/2024 7:09 AM EDT Performed at: - [address] [id number] Allied Health Instructor: Ellis Dweey PhD, Phone: [phone] Patient Fasting: N Nick Siddiqui MD LAB BLOOD ORDERABLES Final Result [facility] (AMBULATORY) [address] [id number], [facility] [address] [place] [address], * (ABNORMAL) Comprehensive Metabolic Panel (11/22/2024 1:56 PM EDT) Glucose 114(H) 70 - 99 mg/dL [facility] BUN 17 8 - 27 mg/dL [facility] Creatinine 0.98 0.76 - 1.27 mg/dL [facility] EGFR Result 81 >59 mL/min/1.7 3 [facility] BUN/Creatinine Ratio 17 10 - 24 [facility] Sodium 141 134 - 144 mmol/L [facility] Potassium 3.7 3.5 - 5.2 mmol/L [facility] Chloride 102 96 - 106 mmol/L [facility] Total CO2 25 20 - 29 mmol/L [facility] Calcium 9.3 8.6 - 10.2 mg/dL [facility] Total Protein 6.7 6.0 - 8.5 g/dL [facility] Albumin 4.1 3.8 - 4.8 g/dL [facility] Globulin 2.6 1.5 - 4.5 g/dL [facility] Total Bilirubin 0.7 0.0 - 1.2 mg/dL [facility] Alkaline Phosphatase 65 44 - 121 IU/L [facility] Comment: Effective December 04, 2024 Alkaline Phosphatase reference interval will be changing to: Age Male Female 0 - 5 days 47 - 127 47 - 127 6 - 10 days 29 - 242 29 - 242 11 - 20 days 109 - 357 109 - 357 21 - 30 days 94 - 494 94 - 494 1 - 2 months 149 - 539 149 - 539 3 - 6 months 131 - 452 131 - 452 7 - 11 months 117 - 401 117 - 401 12 months - 6 years 158 - 369 158 - 369 7 - 12 years 150 - 409 150 - 409 13 years 156 - 435 78 - 227 14 years 114 - 375 64 - 161 15 years 88 - 279 56 - 134 16 years 74 - 207 51 - 121 17 years 63 - 161 47 - 113 18 - 20 years 51 - 125 42 - 106 21 - 50 years 47 - 123 41 - 116 51 - 80 years 49 - 135 51 - 125 >80 years 48 - 129 48 - 129 AST (SGOT) 14 0 - 40 IU/L [facility] ALT (SGPT) 15 0 - 44 IU/L [facility] Blood 11/22/2024 1:56 PM EDT 11/22/2024 Narrative [facility] ([facility]) - 11/23/2024 7:09 AM EDT Performed at: - [facility] [address] [place] [id number] Allied Health Instructor: Ellis Dewey PhD, Phone: [phone] Patient Fasting: N Nick Siddiqui MD LAB BLOOD ORDERABLES Final Result [facility] (AM[facility]) [address] [place] [address], [facility] [address] [place] [address], documented in this encounter Visit Diagnoses Diagnosis Primary hypertension- Primary Unspecified essential hypertension Impaired fasting glucose documented in this encounter Care Teams Sales Data Analyst Relationship Specialty [place] [id number] [place] [address] PCP - General Family Medicine 12/20/18 documented as of this encounter
[2024-12-19 19:00] VITALS: BP 147/106; PULSE 73; RESP 18; TEMP 36.8; O2SAT 97; BMI 46.0
--- OUTSIDE RECORDS SUMMARY | 2024-12-19 20:52 | XMS_ITS | Clinical Summary ---
Author Organization [facility] Address [address] [place] [address] Care Team Providers Care Shell Fisherman Name Role Phone Nick Siddiqui MD Primary Care Provider Allergies No known active allergies Medications valsartan-hydro chlorothiazide (DIOVAN-HCT) 160-25 MG Take 1 tablet by mouth daily Active potassium chloride (MICRO-K) 10 MEQ CR capsule Take 10 mEq by mouth 2 (two) times daily Active cetirizine (ZYRTEC) 10 MG tablet Take 10 mg by mouth daily Active diphenhydrAMINE (BENADRYL) 25 mg capsule Take 50 mg by mouth daily Active Cyanocobalamin (VITAMIN B-12 PO) Take 1,000 mcg by mouth daily. Active sucralfate (CARAFATE) 1 GM/10ML suspension Take 10 mLs by mouth 4 (four) times daily before meals and nightly for 30 days 420 mL 3 6 Active Additional Information Patient not taking.Reported on 02/09/2023 Ferrous Sulfate (IRON) 325 (65 FE) MG TABS Take 325 mg by mouth daily Please wait 30 days to start as iron can be hard on your stomach. 30 each 5 6 Active Multiple Vitamin (MULTI VITAMIN PO) Take by mouth 2 (two) times daily Active Calcium Carb-Cholecalci ferol (CALCIUM 600+D3 PO) Take by mouth Activ e docusate sodium (COLACE) 100 MG capsule Take 100 mg by mouth 2 (two) times daily Active losartan-hydroC HLOROthiazide (HYZAAR) 100-25 MG Take 1 tablet by mouth daily. Active Ascorbic Acid (VITAMIN C) 1000 MG tablet Take 1,000 mg by mouth daily. Active ibuprofen (ADVIL) 200 MG tablet Take 200 mg by mouth every 6 (six) hours as needed for Pain. Active amLODIPine (NORVASC) 5 mg tablet 1 Active amLODIPine (NORVASC) 2.5 MG tablet 3 Active Acetaminophen (TYLENOL PO) Take 500 mg by mouth daily 2 IN THE MORNING AND 2 AT NIGHT. Active OZEMPIC, 0.25 OR 0.5 MG/DOSE, JALIL PEN injection 3 Active Multiple Vitamins-Minera ls (PRESERVISION AREDS 2 PO) Take by mouth. Act brielle tamsulosin (FLOMAX) 0.4 MG CAPS 3 Active metoprolol, TOPROL-XL, 50 MG 24 hr tablet 3 Active hydroCHLOROthia zide (HYDRODIURIL) 25 MG tablet 3 Active losartan (COZAAR) 100 MG tablet 3 Active ELIQUIS 5 MG tablet 3 Active oxyBUTYnin (DITROPAN) 5 MG tablet Take 5 mg by mouth 2 (two) times daily. 4 Active Active Problems Problem Noted Date Diagnosed Date Morbid obesity with BMI of 45.0-49.9, adult 10/20 Morbid obesity 09/04/2015 Immunizations Immunization Administration Dates Next Due Pneumococcal Polysaccharide 23 11/02/2015 Family History Medical History Relation Comments Cancer, Other or Unknown Type Father Arthritis Mother Hypertension Mother Arthritis Other sibling/s Cancer, Other or Unknown Type Other s ibling/s Diabetes Other sibling/s Hypertension Other sibling/s Relation Status Comments Father Mother Other Social History Tobacco Use Types Packs/Day Years Used Date Smoking Tobacco: Never Smokeless Tobacco: Never Tobacco Cessation:Counseling Given: Not Answered Alcohol Use Standard Drinks/Week Comments Yes 1 (1 standard drink = 0.6 oz pur e alcohol) rarely Sex and Gender Information Value Date Recorded Sex Assigned at Not on file Legal Sex Male 4:19 PM EST Gender Identity Not on file Sexual Orientation Not on file Last Filed Vital Signs Vital Sign Reading Time Taken Comments Blood Pressure 132/85 02/22/2024 1:30 PM EST Pulse 79 02/22/2024 1:30 PM EST Temperature 36.5 C (97.7 F) 11/03/2015 11:39 AM EDT Respiratory Rate 18 11/03/2015 11:3 9 AM EDT Oxygen Saturation 98% 02/22/2024 1:30 PM EST Inhaled Oxygen Concentration - - Weight 149.3 kg (329 lb 2.4 oz) 02/22/2024 1:30 PM EST Height 180.3 cm (5' 11 ) 02/22/2024 1:30 PM EST Body Mass Index 45.91 02/22/2024 1:30 PM EST Plan of Treatment Upcoming Encounters Date Type Department Care Team (Late st Contact Info) Description 03/06/2025 1:20 PM EST Office Visit [facility] [address] [facility] [address] [place] [address] Felicia Carlin MD [facility] [address] [place] [address] Health Maintenance Due Date Last Done Comments CT Colonography 1950 FIT-DNA 1950 FIT 1950 FOBT 1950 Hepatitis C Screening 1950 Medicare Annual Wellness Visit (AWV) 1950 Sigmoidoscopy 1950 RSV 50+ and (1 - Risk 50-74 years 1-dose series) 2000 Abdominal Aortic Aneurysm (AAA) Screen 12/30/2015 Annual SDOH Screening 03/22/2024 Influenza Vaccine (#1) 2024 3, 02/03/2022, 12/27/2019, Additional history exists Tdap/Td Vaccine >11 yo (3 - Td or Tdap) 11/01/2027 10/31/2017, 02/16/2015 Colonoscopy 10/09/2030 10/09/2020 Colorectal Cancer Screening 10/09/2030 Pneumococcal Vaccines >50 yo Completed 12/2023, 12/23/2017, 12/17/2016, Additional history exists Shingles (Shingrix) Completed 12/30/2023, Haemophilus Influenzae Type B (Hib) Vaccine Aged Out No longer eligible based on patient's age to complete this topic Hepatitis A (HepA) Vaccine Aged Out N o longer eligible based on patient's age to complete this topic Hepatitis B (HepB) Vaccine Aged Out N o longer eligible based on patient's age to complete this topic Meningococcal ACWY Aged Out No longer eligible based on patient's age to complete this topic Polio (IPV) Aged Out No longer eligi ble based on patient's age to complete this topic Rotavirus (RV) Vaccine Aged Out No lo nger eligible based on patient's age to complete this topic Medical Devices Implanted Type Area Director Merit System Device Identifier Shelf Expiration Date Model / Serial / Lot Strip Olivia [id number] - [id number] Implanted:Qty: 5 on 11/01/2015 by Dajuan Damon MD at [facility] Mesh N/A: Stomach [employer] 11/19/2017 [id number] / / [id number] Insurance MEDICARE BC SUPPLEMENT Advance Directives * Full Code (Latest Code Status on File) Date Activated Date Inactivated Comments 11/01/2015 6:35 PM 11/03/2015 5:08 PM Care Teams Shell Fisherman Relationship Specialty Start Date End Date Nick Siddiqui MD PCP - General Family Medicine 10/09/15
--- OUTSIDE RECORDS SUMMARY | 2024-12-19 20:52 | XMS_ITS | Encounter Summary ---
Author Organization [facility] Address [address] [place] [address] Care Team Providers Care Primer Assembler Name Role Phone Nick Siddiqui MD Primary Care Provider Encounter Details Date Type Department Care Team (Late st Contact Info) Description 11/23/2024 Results Follow-Up [facility] [address] [facility] [address] [place] [address] [place] [address] [facility] [address] [place] [address] Social History Tobacco Use Types Packs/Day Years Used Date Smoking Tobacco: Never Passive Smoke Exposure: Never Smokeless Tobacco: Never Alcohol Use Standard Drinks/Week Comments Yes 5 (1 standard drink = 0.6 oz pur e alcohol) OCCASIONAL C Utilities Answer Date Recorded In the past 12 months has [employer], gas, oil, or water [employer] threatened to shut off services in your [...] 01/12/2023 How often do you attend chur or methodist services? Never 01/12/2023 Do you belong to any clubs o r organizations such as yarsanism groups, unions, fraternal or athletic groups, or [...] Brief Depression Severity Measure Score 0 07/30/2022 [facility] - Occupational Stress Questionnaire Answer Date Recorded [...] No 01/12/2023 Housing Stability Vital Sign Answer Dylno e Recorded In the last 12 months, [...] place to sleep or slept in a [place] health care facility (including now)? No 01/12/2023 Abuse Screen Answer [...] PM EDT documented as of this encounter Plan of Treatment Upcoming Encounters Date Type Department Care Team (Late st Contact Info) Description 04/04/2025 1:00 PM EST Office Visit [facility] [address] [address] [place] [address] [facility] [address] [place] [address] 05/11/2025 10:30 AM EST Office Visit [facility] [address] [address] Neeraj Alvarenga III, MD [address] [address] documented as of this encounter Goals Goal Patient Goal Type Associated Problems Recent Progress Patient-Stated? Author Track and Manage Heart Rate and Rhythm Patient Goals On track( 024 2:30 PM EST) Rachel Miller, RN Note: - check pulse (heart) rate [...] pain. Notes: documented as of this encounter Visit Diagnoses Not on filedocumented in this encounter Care Teams Primer Assembler Relationship Specialty [place] [address] [address] PCP - General Family Medicine 12/20/18 documented as of this encounter
--- OUTSIDE RECORDS SUMMARY | 2024-12-19 20:52 | XMS_ITS | Encounter Summary ---
Author Organization [facility] Address [address] [place] [address] Care Team Providers Care Duralumin Mechanic Name Role Phone Nick Siddiqui MD Primary Care Provider [phone] Encounter Details Date Type Department Care Team (Latest Contact Info) Description 11/22/2024 Travel Social History Tobacco Use Types Packs/Day Years Used Date Smoking Tobacco: Never Passive Smoke Exposure: Never Smokeless Tobacco: Never Alcohol Use Standard Drinks/Week Comments Yes 5 (1 standard drink = 0.6 oz pur e alcohol) OCCASIONAL C Utilities Answer Date Recorded In the past 12 months has [employer], gas, oil, or water company threatened [...] often do you attend chur ch or latter day services? Never 01/12/2023 Do you belong to any clubs o r organizations such as confucianist groups, unions, fraternal or athletic groups, or [...] Brief Depression Severity Measure Score 0 07/30/2022 [facility] - Occupational Stress Questionnaire Answer Date [...] Description 04/04/2025 1:00 PM EST Office Visit [facility] [address] [facility] [address] [place] [address] [place] [address] [facility] [address] [place] [address] 05/11/2025 10:30 AM EST Office Visit [facility] [address] [facility] [address] [place] [address] Neeraj Alvarenga III, MD [address] [facility] [address] [place], [place] [address] documented as of this encounter Goals Goal Patient Goal Type Associated Problems Recent Progress Patient-Stated? Author Track and Manage Heart Rate and Rhythm Patient Goals On track( 024 2:30 PM EST) Rachel Miller RN Note: - check pulse (heart) rate [...] on filedocumented in this encounter Care Teams Duralumin Mechanic Relationship Specialty [place] [address] [address] PCP - General Family Medicine 12/20/18 documented as of this encounter
--- OUTSIDE RECORDS SUMMARY | 2024-12-19 20:52 | XMS_ITS | Patient Health Record ---
Author Organization [facility] Address [address] [facility] [address] [place], [place] [address] Care Team Providers Care Echo Vascular Tech Name Role Phone Chen BENJAMIN Nick Primary Care Provider Sai Johnson Unavailable [phone] Reason For Referral No Information Medications Medication SIG (Take, Route, Fr equency, Duration) Notes Start Date End Date Status Diovan Active amLODIPine Besylate Active CeleBREX Active buPROPion HCl Active Aspirin Active Plan Of Treatment No Information Insurance Providers Payer Name Payer Address Payer Phone Subscriber Number Group Number Insured Name Patient Relationship to Insured Coverage Start Date Coverage End Date Julian Doe [id number] [place] [address] [id number] Chet Smith Self - patient is the insured Medical (General) History Medical History History ICD Code hypertension Surgical History Surgery Date(Month/Year) gallbladder
--- OUTSIDE RECORDS SUMMARY | 2024-12-19 20:52 | XMS_ITS | Encounter Summary ---
Author Organization [facility] Address [address] [place] [address] Care Team Providers Care Viscosity Inspector Name Role Phone Nick Siddiqui MD Primary Care Provider [phone] Encounter Details Date Type Department Care Team (Late st Contact Info) Description 11/15/2024 Telephone [facility] [address] [facility] [address] [place] [address] [place] [address] [facility] [address] [place] [address] Social History Tobacco Use Types Packs/Day Years Used Date Smoking Tobacco: Never Passive Smoke Exposure: Never Smokeless Tobacco: Never Alcohol Use Standard Drinks/Week Comments Yes 5 (1 standard drink = 0.6 oz pur e alcohol) OCCASIONAL [facility] Utilities Answer Date Recorded In the past 12 months has [employer], gas, oil, or water [employer] threatened to shut off services in your [...] week 01/12/2023 How often do you attend [facility] or yarsani services? Never 01/12/2023 Do you belong to any clubs o r organizations such as mandaen groups, unions, fraternal or athletic groups, or [...] Brief Depression Severity Measure Score 0 07/30/2022 [facility]at ional [facility] - Occupational Stress [...] place to sleep or slept in a nursing home (including now)? No 01/12/2023 Abuse Screen Answer [...] PM EDT documented as of this encounter Miscellaneous Notes * Telephone Encounter - Robyn Cardoso MA - 11/15/2024 3:03 PM EDT Called and notified patient, voiced understanding * Telephone Encounter - Frank Beebe - 11/15/2024 1:30 PM EDT Patient has appt on 11/22/24 for B/P (will be out of town between tomorrow am & 11/21/24) He wants to know what he should do between now & then if anything. B/P readings: 11/02/24 151/97 & 152/87 11/06/24 141/90 11/07/24 143/96 157/103 145/95 11/09/24 161/98 11/10/24 146/89 11/11/24 155/109 11/13/24 137/95 146/95 152/96 11/14/24 174/112 151/111 11/15/24 143/90 142/90 documented in this encounter Plan of Treatment Upcoming Encounters Date Type Department Care Team (Late st Contact Info) Description 04/04/2025 1:00 PM EST Office Visit [facility] [address] [facility] [address] [place] [address] [place] [address] [facility] [address] [place] [address] 05/11/2025 10:30 AM EST Office Visit [facility] [address] [facility] [address] [place] [address] Neeraj Alvarenga III, MD [address] [facility] [address] [place], [place] [id number] documented as of this encounter Goals Goal Patient Goal Type Associated Problems Recent Progress Patient-Stated? Author Track and Manage Heart Rate and Rhythm Patient Goals On track( 2:30 PM EST) No Rachel Rapp, CHARO Note: - check pulse (heart) rate before [...] Patient Goals On track( 2:30 PM EST) Rachel Miller, RN Note: [...] Patient Goals On track( 2:30 PM EST) Rachel Miller, RN Note: [...] on filedocumented in this encounter Care Teams Viscosity Inspector Relationship Specialty Start [place] [address] [address] PCP - General Family Medicine 12/20/18 documented as of this encounter
--- OUTSIDE RECORDS SUMMARY | 2024-12-19 20:52 | XMS_ITS | Encounter Summary ---
[facility] Address [address] [place] [address] Care Team Providers Care Vacuum Kettle Cook Name Role Phone Nick Siddiqui MD Primary Care Provider Reason for Visit * Reason Onset Date Comments Med Refill 12/12/2024 Encounter Details Date Type Department Care Team (Late st Contact Info) Description 12/12/2024 Refill [facility] [address] [facility] [address] [place] [address] Nick Siddiqui [place] [id number] [place] [address] [address] [place] [address] Primary hypertension Social History Tobacco Use Types Packs/Day Years Used Date Smoking Tobacco: Never Passive Smoke Exposure: Never Smokeless Tobacco: Never Alcohol Use Standard Drinks/Week Comments Yes 5 (1 standard drink = 0.6 oz pur e alcohol) OCCASIONAL C Utilities Answer Date Recorded In the past 12 months has [employer], gas, oil, or water [employer] threatened to shut off services in your [...] week 01/12/2023 How often do you attend [facility] or amish services? Never 01/12/2023 Do you belong to any clubs o r organizations such as oriental orthodox groups, unions, fraternal or athletic groups, or [...] Brief Depression Severity Measure Score 0 07/30/2022 [facility] [place] of Occupat ional Health - Occupational Stress [...] place to sleep or slept in a [facility] (including now)? No 01/12/2023 Abuse Screen Answer [...] Telephone Encounter - Robyn Cardoso MA - 12/12/2024 1:05 PM EDT SORAIDA - 11/22/24 NOV - 04/04/25 LAST REFILL - 06/08/24 09/13/24 documented in this encounter Plan of Treatment Upcoming Encounters Date Type Department Care Team (Late st Contact Info) Description 04/04/2025 1:00 PM EST Office Visit [facility] [address] [facility] [address] [place] [address] [place] [address] [facility] [address] [place] [address] 05/11/2025 10:30 AM EST Office Visit [facility] [address] [facility] [address] [place] [address] Neeraj Alvarenga III, MD [address] [address] documented as of this encounter Goals Goal Patient Goal Type Associated Problems Recent Progress Patient-Stated? Author Track and Manage Heart Rate and Rhythm Patient Goals On track( 2:30 PM EST) Rachel Miller RN Note: [...] On track( 2:30 PM EST) Rachel Miller, CHARO Note: - not discussed during this outreach [...] documented as of this encounter Visit Diagnoses Diagnosis Primary hypertension Unspecified essential hypertension documented in this encounter Care Teams Vacuum Kettle Cook Relationship Specialty [place] [address] [facility] [address] [place] [address] PCP - General Family Medicine 12/20/18 documented as of this encounter
--- OUTSIDE RECORDS SUMMARY | 2024-12-19 20:53 | XMS_ITS | Clinical Summary ---
Author Organization [facility] Address [address] [place] [address] Care Team Providers Care Processor Grain Name Role Phone Nick iSddiqui MD Primary Care Provider [phone] Nick Siddiqui MD Unavailable [phone] Social History Tobacco Use Types Packs/Day Years Used Date Smoking Tobacco: Never Assessed Sex and Gender Information Value Date Recorded Sex Assigned at Not on file Legal Sex Male 8:13 PM EDT Gender Identity Not on file Sexual Orientation Not on file Last Filed Vital Signs Vital Sign Reading Time Taken Comments Blood Pressure 131/76 07/04/2018 2:27 PM EDT Pulse 59 07/04/2018 2:27 PM EDT Temperature 37.2 C (98.9 F) 07/04/2018 2:27 PM EDT Respiratory Rate - - Oxygen Saturation - - Inhaled Oxygen Concentration - - Weight 126 kg (278 lb) 07/04/2018 2:27 PM EDT Height 180.3 cm (5' 11 ) 07/04/2018 2:27 PM EDT Body Mass Index 38.77 07/04/2018 2:27 PM EDT Plan of Treatment Health Maintenance Due Date Last Done Comments CT Colonography 1950 Colonoscopy 1950 Colorectal Cancer Screening 1950 FIT-DNA (Cologuard) 1950 FIT 1950 FOBT 1950 Hepatitis C Screening 1950 Sigmoidoscopy 1950 Hepatitis B Screening 1968 DTaP/Tdap/Td Vaccines (1 - Tdap) 1969 Pneumococcal Vaccine: 50+ Years (1 of 1 - PCV) 2000 Zoster Vaccines (1 of 2) 2000 Lipid Panel 06/17/2022 06/17/2017 Depression Risk Screening 03/22/2024 Fall Risk Screening 03/22/2024 SDOH Screening 03/22/2024 COVID-19 Vaccine ( season) 2024 Influenza Vaccine (#1) 2024 8, 12/17/2016, 02/29/2016, Additional history exists BMI Intervention Completed 05/21/2015, 03/2015, 04/29/2015, Additional history exists HIB Vaccines Aged Out No longer eligi ble based on patient's age to complete this topic HPV Vaccines Aged Out No longer eligi ble based on patient's age to complete this topic Hepatitis A Vaccines Aged Out No long er eligible based on patient's age to complete this topic Hepatitis B Vaccines Aged Out No long er eligible based on patient's age to complete this topic IPV Vaccines Aged Out No longer eligi ble based on patient's age to complete this topic Meningococcal B Vaccine Aged Out No l onger eligible based on patient's age to complete this topic Meningococcal Vaccine Aged Out No nito kaitlin eligible based on patient's age to complete this topic Rotavirus Vaccines Aged Out No longer eligible based on patient's age to complete this topic Procedures Procedure Name Priority Date/Time Associated Diagnosis Comments LIPID PANEL Routine 06/17/2017 9:52 AM EDT from Last 3 Months or Most Recently Relevant to Health Maintenance Results * Lipid panel (06/17/2017 9:52 AM EDT) [facility] Triglycerides 82 <150 mg/dL [facility] Cholesterol 144 <200 mg/dL [facility] HDL 47 >40 mg/dL [facility] LDL Calculated 81 mg/dL (calc) [facility] Comment: Result Comment: Reference range: <100 Desirable range <100 mg/dL for patients with CHD or diabetes and <70 mg/dL for diabetic patients with known heart disease. LDL-C is now calculated using the Sam calculation, which is a validated novel method providing better accuracy than the Friedewald equation in the estimation of LDL-C. Adam MORTENSEN et al. KATYA. 2013;310(19): 7444-9879 (http://education.Kriyari.Gradematic.com/faq/YWE205) CHOL/HDLC RATIO 3.1 <5.0 (calc) [facility] LDL/HDL RATIO 1.7 (calc) [facility] Comment: Result Comment: Below Average Risk: <2.28 Average Risk: 2.29-4.90 Moderate Risk: 4.91-7.12 High Risk: >7.13 Non HDL Chol. (LDL+VLDL) 97 <130 mg/dL (calc) [facility] Comment: Result Comment: For patients with diabetes plus 1 major ASCVD risk factor, treating to a non-HDL-C goal of <100 mg/dL (LDL-C of <70 mg/dL) is considered a therapeutic option. 06/17/2017 9:52 AM EDT us Nick Siddiqui MD LAB BLOOD ORDERABLES Final Result [facility] [address] from Last 3 Months or Most Recently Relevant to Health Maintenance Care Teams Processor Grain Relationship Specialty Start Date End Date Nick Siddiqui MD PCP - General 12/15/19 Nick Siddiqui MD Family Medicine 12/15/19
--- OUTSIDE RECORDS SUMMARY | 2024-12-19 20:53 | XMS_ITS | Encounter Summary ---
[facility] [address] [place] [address] Care Team Providers Care Kick Plate Installer Name Role Phone Nick Siddiqui MD Primary Care Provider [phone] Reason for Visit * Reason Onset Date Comments Med Refill 11/22/2024 Encounter Details Date Type Department Care Team (Late st Contact Info) Description 11/22/2024 Refill [facility] [id number] [place] [address] [address] [place] [address] [place] Siddiqu[place] [id number] [place] [address] [address] [place] [address] Social History Tobacco Use Types Packs/Day Years Used Date Smoking Tobacco: Never Passive Smoke Exposure: Never Smokeless Tobacco: Never Alcohol Use Standard Drinks/Week Comments Yes 5 (1 standard drink = 0.6 oz pur e alcohol) OCCASIONAL C Utilities Answer Date Recorded In the past 12 months has [employer], gas, oil, or water [email or web address] threatened to shut off services in your [...] week 01/12/2023 How often do you attend [facility] or worship services? Never 01/12/2023 Do you belong to any clubs o r organizations such as catholic groups, unions, fraternal or athletic groups, or [...] Brief Depression Severity Measure Score 0 07/30/2022 [facility] [place] of Occupat ional Health - Occupational Stress [...] place to sleep or slept in a detention (including now)? No 01/12/2023 Abuse Screen Answer [...] Telephone Encounter - Robyn Cardoso MA - 11/22/2024 1:56 PM EDT Samples - 3 box [id number] 08/2025 documented in this encounter Plan of Treatment Upcoming Encounters Date Type Department Care Team (Late st Contact Info) Description 04/04/2025 1:00 PM EST Office Visit [facility] [address] [place] [address] [place] [address] [address] [place] [address] 05/11/2025 10:30 AM EST Office Visit [facility] [address] [facility] [address] [place] [address] Neeraj Alvarenga III, MD [address] [facility] [address] [place], [place] [id number] documented as of this encounter Goals Goal [...] on filedocumented in this encounter Care Teams Kick Plate Installer Relationship Specialty Start [place] [id number] [address] PCP - General Family Medicine 12/20/18 documented as of this encounter
--- OUTSIDE RECORDS SUMMARY | 2024-12-19 20:53 | XMS_ITS | Clinical Summary ---
[facility] [address] [place] [address] Care Team Providers Care Machine Loader Name Role Phone Nick Siddiqui MD Primary Care Provider [phone] Allergies No known active allergies Medications Calcium Carbonate-Vit D-Min (CALTRATE 600+D PLUS MINERALS) 600-800 MG-UNIT chewable tablet 1 bid 60 tablet 12/20/19 19 Active Additional Information Patient taking differently: 2 tablet Oral, 1 bid, Reported on 11/22/2024 cetirizine (zyrTEC) 10 MG tablet Take 1 tablet by mouth Daily. 12/20/19 19 Active Multiple Vitamin (MULTI-VITAMIN PO) Take 1 tablet by mouth Daily. HELD FOR OR Active Ascorbic Acid (VITAMIN C PO) Take 1 tablet by mouth Daily. Active diphenhydrAMINE (BENADRYL) 25 mg capsule Take 2 capsules by mouth 2 (two) times a day. Active docusate sodium 100 MG capsule Take 1 capsule by mouth 2 (Two) Times a Day. 60 capsule 1 05/17/19 21 Active Multiple Vitamins-Mineral s (PRESERVISION AREDS 2 PO) Take by mouth. HOLD PRIOOR TO OR Active acetaminophen (Tylenol) 325 MG tablet Take 500 mg by mouth Daily. Active cyanocobalamin ([employer] Vitamin B-12) 1000 MCG tablet Take 1 tablet by mouth Daily. Active oxybutynin (DITROPAN) 5 MG tablet Take 1 tablet by mouth 2 (Two) Times a Day. 02/08/20 24 Active hydroCHLOROthiaz herrera 25 MG tabletIndication s:Essential hypertension Take 1 tablet by mouth Daily. 90 tablet 3 06/09/19 25 Active metoprolol succinate XL (TOPROL-XL) 50 MG 24 hr tablet Take 4 tablets by mouth Daily. Per Dr. Parnell 10/02/2022 360 tablet 3 06/09/19 25 Active potassium citrate (UROCIT-K) 10 MEQ (1080 MG) CR tablet Take 1 tablet by mouth 2 (Two) Times a Day. 180 tablet 3 06/30/19 25 Active apixaban (Eliquis) 5 MG tablet tablet Take 1 tablet by mouth Every 12 (Twelve) Hours. 28 tablet 11/23/19 25 Active valsartan (Diovan) 160 MG tabletIndication s:Primary hypertension Take 1 tablet by mouth Daily. 90 tablet 1 12/13/19 25 Active amLODIPine (NORVASC) 5 MG tablet Take 1 tablet by mouth Daily. 90 tablet 1 12/13/19 25 Active amLODIPine (NORVASC) 5 MG tablet Take 1 tablet by mouth Daily. 90 tablet 3 06/09/19 25 025 Discontin ued(Reord er) apixaban (Eliquis) 5 MG tablet tablet Take 1 tablet by mouth Every 12 (Twelve) Hours. 28 tablet 06/22/19 25 025 Discontin ued(Reord er) valsartan (Diovan) 160 MG tabletIndication s:Primary hypertension Take 1 tablet by mouth Daily. 90 tablet 3 09/14/19 25 025 Discontin ued(Reord er) Active Problems Problem Noted Date Diagnosed Date Arthritis of left knee 09/09/2023 Ascending aorta dilation 05/04/2023 Aortic root dilation 05/04/2023 Nonrheumatic mitral valve regurgitation 05/04/19 24 Left ventricular dysfunction 05/04/2023 PVCs (premature ventricular contractions) 2023 Overview (04/29/2023): 1.8% PVC burden on Holter 2022 Permanent atrial fibrillation 07/02/2022 Encounter for hepatitis C sc reening test for low risk patient 07/23/2021 Immunization deficiency 07/23/2021 Bilateral carpal tunnel syndrome 04/09/2021 Paronychia of left thumb 01/22/2021 Chronic left shoulder pain 02/14/2020 Anterior dislocation of left shoulder 12/27/2019 Cough 08/11/2019 Nephrolithiasis 01/16/2019 H/O bariatric surgery 12/19/2018 Morbid obesity 09/04/2015 CHARITO (obstructive sleep apnea) Medicare annual wellness visit, subsequent Malabsorption Impaired fasting glucose Hypertension Assessment & Plan (10/18/2023 11:51 AM EDT): GERD without esophagitis Depression Benign paroxysmal positional vertigo Allergic rhinitis Benign enlargement of prostate Arthritis of both knees Resolved Problems Problem Noted Date Diagnosed Date Resolved Date Screen for colon cancer 09/06/2020 02/0 10/2023 Overview (09/06/2020): Added automatically from request for surgery [id number] Colon cancer screening 04/22/202004/29 Closed fracture of greater t uberosity of left humerus 12/27/2019 04/29/2023 Upper respiratory tract infe ction due to COVID-19 virus 08/13/2019 04/29/2023 Acute upper respiratory infection 08/11/2019 04/29/2023 Acute swimmer's ear of left side 05/15/2019 04/29/2023 Muscle cramp 05/15/2019 04/29/2023 Obesity 04/29/2023 Arthritis 04/29/2023 Encounters Date Type Department Care Team Description 12/12/2024 Refill [facility] [address] [place] [id number] Nick Siddiqui MD Primary hypertension 11/23/2024 Results Follow-Up [facility] [address] [place] [address] Nick Siddiqui MD 11/22/2024 1:30 PM EDT Office Visit [facility] [address] [place] [address] Nick Siddiqui MD Primary hypertension (Primary Dx); Impaired fasting glucose 11/22/2024 Refill [facility] [address] [place] [address] Nick Siddiqui MD 11/22/2024 Travel 11/15/2024 Telephone [facility] [address] [place] [address] Nick Siddqiui MD 10/04/2024 Telephone [facility] [address] [place] [address] Nick Siddiqui MD 10/04/2024 Telephone [facility] [address] [place] [address] Nick Siddiqui MD CALLBACK from Last 3 Months Immunizations Immunization Administration Dates Next Due COVID-19 (PFIZER) 12YRS+ (COMIRNATY) 02/24/2024 COVID-19 (PFIZER) BIVALENT 12+YRS 02/03/2022 COVID-19 (PFIZER) Purple Cap Monovalent 08/15/19 21,07/24/2020 Covid-19 (Pfizer) Weems Cap Monovalent 07/23/2021 FLUAD TRI 65YR+ 01/16/2019 Fluad Quad 65+ 03/01/2023,12/27/2019,01/16/2019 Fluzone High-Dose 65+YRS 02/24/2024,12/23/2017 Fluzone High-Dose 65+yrs 02/03/2022 Pneumococcal Conjugate 13-Valent (PCV13) 017 Pneumococcal Conjugate 20-Valent (PCV20) 024 Pneumococcal Polysaccharide (PPSV23) 12/23/2017, 11/02/2015 Shingrix 12/30/2023,10/20/2023 Tdap 10/31/2017,02/16/2015 Family History Medical History Relation Name Comments Diabetes Brother 1 Brenden Cancer Brother 2 Dov Bertholf Diabetes Brother 2 Dov Bertluz mariaf Cancer Brother 3 Dov Bertholf Diabetes Brother 3 Dov Bertholf Diabetes Brother 4 Brenden Cancer Father Mustapha Hypertension Mother Maria R Cancer Sister 1 Emil [facility] Cancer Sister 2 Mar [facility] Mal Hyperthermia Neg Hx Relation Name Status Comments Brother 1 Brenden Alive Brother 2 Dov [place] Alive Brother 3 Dov [place] Alive Brother 4 Brenden Alive Father Mustapha Alive Mother Maria R Sister 1 Emil Arellano Alive Sister 2 Emil Arellano Alive Social History Tobacco Use Types Packs/Day Years Used Date Smoking Tobacco: Never Passive Smoke Exposure: Never Smokeless Tobacco: Never Tobacco Cessation:Counseling Given: Not Answered Alcohol Use Standard Drinks/Week Comments Yes 5 (1 standard drink = 0.6 oz pur e alcohol) OCCASIONAL [facility] Utilities Answer Date Recorded In the past 12 months has th e [employer], gas, oil, or water [employer] threatened to shut off services in your [...] week 01/12/2023 How often do you attend [facility] or roman catholic services? Never 01/12/2023 Do you belong to any clubs o r organizations such as episcopal groups, unions, fraternal or athletic groups, or [...] Brief Depression Severity Measure Score 0 07/30/2022 [facility] [place] of Occupat ional Health - Occupational Stress [...] money to buy more. Never true 01/13/20 Within the past 12 months, t he [...] place to sleep or slept in a correction (including now)? No 01/12/2023 Abuse Screen Answer [...] Orientation Straight 06/28/2022 3: 05 PM EDT Last Filed Vital Signs Vital Sign Reading Time Taken Comments Blood Pressure 152/90 11/22/2024 1:17 PM EDT Pulse 60 11/22/2024 1:17 PM EDT Temperature 36.7 C (98 F) 11/22/2024 1:17 PM EDT Respiratory Rate 17 10/18/2023 11:18 AM EDT Oxygen Saturation 98% 11/22/2024 1:17 PM EDT Inhaled Oxygen Concentration - - Weight 144 kg (317 lb 12.8 oz) 11/22/2024 1:17 P M EDT Height 177.8 cm (5' 10 ) 11/22/2024 1:17 PM EDT Body Mass Index 45.6 11/22/2024 1:17 PM EDT Plan of Treatment Upcoming Encounters Date Type Department Care Team (Late st Contact Info) Description 04/04/2025 1:00 PM EST Office Visit [facility] [address] [facility] [address] [place] [address] [place] [address] [facility] [address] [place] [address] 05/11/2025 10:30 AM EST Office Visit [facility] [address] [facility] [address] [place] [address] Neeraj Alvarenga III, MD [address] [place] [address] Health Maintenance Due Date Last Done Comments DXA SCAN 1950 MAMMOGRAM 1990 COLOGUARD 12/30/1995 COLON CANCER SCREENING 5 YEA R SIGMOIDOSCOPY 12/30/1995 CT COLONOGRAPHY 12/30/1995 FECAL OCCULT BLOOD TEST 12/30/1995 FIT Testing (1 year) 12/30/1995 HEPATITIS C SCREENING 12/15/2018 ANNUAL WELLNESS VISIT 10/17/2024 10/18/2023 , 07/30/2022, 07/23/2021, Additional history exists INFLUENZA VACCINE 10/20/2024 02/24/2024, , 03/01/2023, Additional history exists COVID-19 Vaccine (7 - 2023-2 5 season) 2024 02/24/2024, 03/01/2023, 02/03/2022, Additional history exists TDAP/TD VACCINES (3 - Td or Tdap) 11/01/2027 018, 02/16/2015 COLONOSCOPY 10/09/2030 10/09/2020, 09/20, 03/25/2010, Additional history exists COLORECTAL CANCER SCREENING 10/09/2030 Pneumococcal Vaccine 50+ Completed , 12/23/2017, 12/17/2016, Additional history exists ZOSTER VACCINE Completed 12/30/2023, 10/20/2023 HEMOGLOBIN A1C Discontinued 11/22/2024, 1207/2023, 05/19/2023, Additional history exists Goals Goal Patient Goal Type Associated Problems [...] to help you manage your pain. Notes: Medical Devices Implanted Type Area E Learning Developer Device Identifier Shelf Expiration Date Model / Serial / Lot Sut Nonabs Maxbraid/Pe Nmbr2 C7 38in David [id number] - [id number] Implanted:Qty: 5 on 05/16/2020 by Jacobo Roca MD at [facility] Implant Left: Shoulder [employer] [id number] 10/31/2024 [id number] / / [id number] Try Hum Std Pls3mm 40mm - [id number] Implanted:Qty: 1 on 05/16/2020 by Jacobo Roca MD at [facility] Implant Left: Shoulder [employer] [id number] 12/15/2029 [id number] / / [id number] Bear Hum Prolng Pls3 40mm - [id number] Implanted:Qty: 1 on 05/16/2020 by Jacobo Roca MD at [facility] Implant Left: Shoulder [employer] [id number] 12/20/2023 [id number] / / [id number] Stem Hum Comprnsv Hayley Mini 14mm - [id number] Implanted:Qty: 1 on 05/16/2020 by Jacobo Roca MD at [facility] Implant Left: Shoulder [employer] 11/02/2029 [id number] / / [id number] Sut Contrl Tiss Stratafixspiralmncr yl Plsps2 Rev3/0 15cm - [id number] Implanted:Qty: 1 on 05/16/2020 by Jacobo Roca MD at [facility] Implant Left: Shoulder [employer] J [id number] 03/21/2022 [id number] / / [id number] Menjivar Shlder Rev - [id number] Implanted:Qty: 1 on 05/16/2020 by Jacobo Roca MD at [facility] Implant Left: Shoulder [employer] CAPSHOULTO TZIM5 / / Baseplt Horacio Compr Mini W Tpr Adaptr 25 - [id number] Implanted:Qty: 1 on 05/16/2020 by Jacobo Roca MD at [facility] Implant Left: Shoulder [employer] [id number] 11/08/2029 [id number] / / [id number] Scrw Comprnsv Cntrl 6.5x40mm Reus - [id number] Implanted:Qty: 1 on 05/16/2020 by Jacobo Roca MD at [facility] Implant Left: Shoulder [employer] [id number] 12/19/2029 [id number] / / [id number] Scrw Fix Lk Hex 4.81k73wj - [id number] Implanted:Qty: 1 on 05/16/2020 by Jacobo Roca MD at [facility] Implant Left: Shoulder [employer] [id number] 04/11/2030 [id number] / / [id number] Scrw Fix Lk Hex 4.49i67pb - [id number] Implanted:Qty: 1 on 05/16/2020 by Jacobo Roca MD at [facility] Implant Left: Shoulder [employer] [id number] 01/25/2030 [id number] / / [id number] Scrw Fix Lk Hex 4.90a24hk - [id number] Implanted:Qty: 1 on 05/16/2020 by Jacobo Roca MD at [facility] Implant Left: Shoulder [employer] [id number] 01/18/2030 [id number] / / [id number] Scrw Fix Lk Hex 4.99l68ov - [id number] Implanted:Qty: 1 on 05/16/2020 by Jacobo Roca MD at [facility] Implant Left: Shoulder [employer] [id number] 03/06/2030 [id number] / / [id number] Comp Horacio Versa/Dial Pls3 40mm - [id number] Implanted:Qty: 1 on 05/16/2020 by Jacobo Roca MD at [facility] Implant Left: Shoulder [employer] [id number] 04/21/2029 [id number] / / [id number] Explanted Type Area E Learning Developer Device Identifier Shelf Expiration Date Model / Serial / Lot Juan Phillips 3.2mm 9in - [id number] Explanted:Qty: 1 on 05/16/2020 at [facility] Implant Left: Shoulder [employer] 02/10/2030 [id number] / / [id number] Procedures Procedure Name Priority Date/Time Associated Diagnosis Comments HEMOGLOBIN A1C Routine 11/22/2024 1:56 PM EDT Impaired fasting glucose COMPREHENSIVE METABOLIC PANEL Routine 11/22/2024 1:56 PM EDT Primary hypertension COLONOSCOPY 10/09/2020 12:49 PM EDT from Last 3 Months or Most Recently Relevant to Health Maintenance Results * (ABNORMAL) Hemoglobin A1c (11/22/2024 1:56 PM EDT) Hemoglobin A1C 5.8(H) 4.8 - 5.6 % [facility] Comment: Prediabetes: 5.7 - 6.4 Diabetes: >6.4 Glycemic control for adults with diabetes: <7.0 Blood 11/22/2024 1:56 PM EDT 11/22/2024 Narrative [facility] (AMBULATORY) - 11/23/2024 7:09 AM EDT Performed at: 01 - [address] [id number] Hospitality Workers: Ellis Dewey PhD, Phone: [phone] Patient Fasting: N Nick Siddiqui MD LAB BLOOD ORDERABLES Final Result [facility] (AMBULATORY) [address] [place] [address], [facility] [address] [id number], * (ABNORMAL) Comprehensive Metabolic Panel (11/22/2024 1:56 [...] - 11/23/2024 7:09 AM EDT Performed at: 01 - [facility] [address] [facility], [place], [place] [id number] Hospitality Workers: Ellis Dewey PhD, Phone: [phone] Patient Fasting: N Nick Siddiqui MD LAB BLOOD ORDERABLES Final Result [facility] ([facility]BULATORY) [address] [place] [address], [facility] [address] [place] [address], * COLONOSCOPY (10/09/2020 12:49 PM EDT) Davi Beckford MD INTERFACE NEEDS Final Resu lt from Last 3 Months or Most Recently Relevant to Health Maintenance Insurance MEDICARE A & B [facility] Advance Directives * CPR (Attempt to Resuscitate) (Latest Code Status on File) Date Activated Date Inactivated Comments 05/16/2020 1:10 PM 05/17/2020 4:45 PM Question Answer Comments Code Status (Patient has no pulse and is not breathing): CPR (Attempt to Resuscitate) Medical Interventions (Patie nt has pulse or is breathing): Full Care Teams Machine Loader Relationship Specialty [place] [address] [address] PCP - General Family Medicine 12/20/18
[2024-12-19 21:30] VITALS: BP 135/92; PULSE 63; RESP 15; O2SAT 95
--- NOTE | 2024-12-19 21:49 | ED_ITS ---
Discharge Plan Disposition Patient Disposition: Home, Self-Care Prescriptions Prescriptions: No Action valsartan-hydrochlorothiazide 1 EACH Tablet 1 ea PO DAILY Referrals Follow up/Referrals: Provider,Referral, MD [Referring, Medical] - See instructions Activity Restrictions/Add. Instructions Additional Instructions/Restrictions: At this time it was felt you are safe to be discharged home. If new or worsening symptoms please do not hesitate to return the emergency department. Please get your sutures evaluated to be removed in 12 days. Clinical Impressions Clinical Impression: Bleeding from wound Instructions Patient Instructions: DI for Laceration Repair Print Language Print Language: Slovak Discharge ED Provider: Krishna Auguste General Adult HPI General Chief complaint: Wound/Laceration Stated complaint: left leg cut Time Seen by Provider: 12/19/24 20:56 Mode of Arrival: Ambulatory Description of Symptoms (Recalled from ER Triage Doc. by RN): Pt presents with LLE wound. Pt states that he was itching L dodge when he noticed bleeding that would not stop. Pt placed paper towels, a wrist brace, and back brace on site that was bleeding 1.5 hours ago. Pt denies any squirting blood from site. + sensation, and full ROM noted upon assessment. cap refill <3 seconds. Pt on 5mg eliquis History of Present Illness HPI narrative: Patient is 73-year-old male with past medical history of atrial fibrillation on anticoagulation presents for bleeding wound to his left dodge. He is unsure on how the bleeding wound started however it has been persistently oozing and refractory to compression at home causing her to become concerned and presented for continued valuation. Does not member overtly striking it against anything does not have any pain just persistent bleeding. No other acute complaints at this time. Please note that above description of symptoms, in this electronic medical record under categorization of recalled from ER triage doctor by RN are reflective of an initial nursing assessment, however, is not reflective of my full history and physical exam that was personally taken and clarified. Consequentially, this preceding description of symptoms, which may include the patient's categorized chief complaint in the EMR, do not reflect my personal clinical impression, and the ultimate description of history of present illness and patient stated complaints should be deferred to this section of the note. Unless stated otherwise or congruent with this section of the note, additional signs, symptoms, or incongruence should be interpreted as inaccurate with my clinical impression. Related Data Home Medications ?Medication ?Instructions ?Recorded ?Confirmed valsartan 160 1 ea PO DAILY High blood pre ssure 05/20/18 05/20/18 mg-hydrochlorothiazide 25 mg tablet Allergies Allergy/AdvReac Type Severity Reaction Status Date / Time No Known Allergies Allergy Verified 05/20/18 14:29 [facility] Disclaimer: The information contained in this section may have been updated after the patient was seen, as this information can be updated by other users. Social History Smoking Status: Never smoker alcohol intake: never current occupational status: other Travel in the last 8 weeks?: None household members: other housing: other Have you lived/traveled outside [place] in past 30 days?: No Contact w/someone who lives/traveled outside [place] past 30 days?: No Exposure to someone with infectious disease in past 14 days?: No Do you have a fever (greater than 100.4 F or 38 C)?: No Have you tested positive for COVID-19?: No Exposed to someone with COVID-19 in past 14 days?: No Do you have a sore throat?: No Do you have a cough?: No Do you have any weakness?: No Do you have any diarrhea?: No Are you experiencing any unusual bleeding?: No Do you have any muscle aches/pain?: No Do you have any abdominal pain?: No Are you experiencing loss of taste or smell?: No Other Medical History Have you received the Flu Vaccine for this season: No Have you received the Pneumonia Vaccine: No ROS Obtained: Yes Systems reviewed as appropriate & no additional complaints except as documented Physical Exam General General appearance: alert Head Head exam: atraumatic and normocephalic Eye Eye exam: Present PERRL and EOMI ENT ENT exam: Present mucous membranes moist Neck Neck exam: Present normal inspection Chest Chest inspection: Present normal inspection and symmetric chest wall rise Respiratory Respiratory exam: Present normal lung sounds bilaterally; Absent respiratory distress Cardiovascular Cardiovascular exam: Present regular rate and normal rhythm Abdominal Exam Abdominal exam: Present soft; Absent tenderness Extremities Exam Extremities exam: Present other (Punctate oozing venous blood over the left dodge. No arterial bleed.) Neurological Exam Neurological exam: Present alert Psychiatric Psychiatric exam: Present normal affect Skin Skin exam: Present warm and dry Medical Decision Making Medical Records Screening: Per USPSTF and CDC recommendations, given the prevalence of disease in our region, it is our hospital?s policy to screen for HIV and viral Hepatitis for all patients aged 18 and over and those with ongoing risk factors. Howie Inquiry Pt receiving controlled substance: No Vital Signs: 12/19/24 19:00 Temperature 98.3 F Temperature Source Oral Pulse Rate [Left Radial] 73 Respiratory Rate 18 Blood Pressure [Right Arm] 147/106 H Blood Pressure Mean [Right Arm] 119 Blood Pressure Source [Right Arm] Automatic Cuff Blood Pressure Position [Right Arm] Sitting 02 Sat by Pulse Oximetry 97 Oxygen Delivery Method Room Air Medical Decision Narrative: In summary patient is 73 old male past medical history of scrota above presents emerged apartment for evaluation of a oozing leg wound. Patient is hemodynamically stable and nontoxic-appearing upon arrival, afebrile. Patient has an oozing vein with persistent bleeding over his left dodge that is punctate but has persistent bleeding in the setting of anticoagulation. No trauma although x-ray was considered will be deferred at this time. Pressure was placed for multiple minutes and was unsuccessful. Given this pursestring suture was placed around the wound and Surgicel was placed over top of it followed by pressure dressing patient underwent a period observation and hemostasis was achieved. Given this patient is appropriate for outpatient management at this time was given return precautions. Procedure: Procedure performed was suturing wound. Procedure performed by Krishna Auguste. Using 4-0 Prolene pursestring suture was placed around the area of bleeding which had significant reduction in bleeding however there was some persistent oozing for which Surgicel was placed over top of this and inverted pressure dressing. Recheck hemostasis was achieved. Patient tolerated procedure well there were no immediate complications. Critical Care Critical Care Time Critical Care Time: No
[2024-12-19 22:00] VITALS: BP 149/106; PULSE 58; RESP 15; O2SAT 96
[2024-12-19 22:12] VITALS: BP 149/106; PULSE 73; RESP 14; TEMP 36.9; O2SAT 97
== END 2024-12-19 22:23 | disposition home or self-care (01) ==
PROVIDERS: Emergency Provider Emergency Medicine; PCP Family Medicine
DX: S81.812A Laceration without foreign body, left lower leg, initial encounter (principal); W26.8XXA Contact with other sharp object(s), not elsewhere classified, initial encounter
CPT/HCPCS: 12001; 99282; J2004